=== PATIENT | female | born 1985 | race Caucasian/White ===

== ENCOUNTER 2018-04-14 05:45 | Inpatient (IN) | payer OTHER ==
--- NOTE | 2018-04-14 06:32 | OBADHP ---
Datetime: 04/14/2018 06:29 Admit Comment, IP Provider: with IUP at 38+6 weeks for repeat scheduled CS +FM + CTX - VB - LOF NPO since last night OB: 1 FT CS for NRFHT? in [place] current care with Dr. 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
[2018-04-14] MEDS ORDERED: Lactated Ringer's 1,000 ML IV ONE (06:34)
[2018-04-14] MEDS ORDERED: ceFAZolin 2 GM in Sodium Chloride 0.9% 100 ML IVPB ONE (06:34)
[2018-04-14] MEDS ORDERED: Sodium Citrate/Citric Acid 15 ml Sol PO ONE (06:34)
[2018-04-14 06:44] VITALS: BMI 32.5
[2018-04-14] MEDS ORDERED: cefOXitin IV 2 gm in Saline 2 GM in Sodium Chloride 0.9% 50 ML IV STA (07:10)
[2018-04-14] MEDS ORDERED: Sodium Citrate/Citric Acid 15 ml Sol ONE (07:13)
[2018-04-14] MEDS ORDERED: cefOXitin IV 2 gm in Saline 2 GM/50 ML BAG IVPB ONE (07:14)
--- NOTE | 2018-04-14 07:15 | OBHP ---
Datetime: 04/14/2018 06:29 IP Adm Impression: Term, intrauterine IP Admit Plan: Admit to unit Admit Comment, IP Provider: with IUP at 38+6 week s previous cesearesction chepe c/o pain 12/08 dnie slof, vb, +FM OB: 1 FT CS for NRFHT? 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, unknown pap history, LMP 07/15 Med: hypothyroidism Surg: CS x 1 current meds: levothyroxine 137mcg, vitamin, iron supplement A/P: for in early labor repeat CS vitals stable, afebrile EFM/TOCO NPO/IVF admission labs chart pt seen adn examied SROM during evluatin, eclare r/b/ai of rltcs dw paiettn or/atehsi aware anbiiocs Pelvic Type - PN: Adequate Extremities - PN: Normal Abdomen - PN: Normal Back - PN: Normal Breast - PN: Normal Lungs - PN: Normal Heart - PN: Normal Thyroid - PN: Normal Neurologic - PN: Normal HEENT - PN: Normal General - PN: Normal Presentation-Admit: Vertex FHR - Baseline A Provider: 130 Membranes, Provider: Intact Gestation - Est Wks by US: 38.6 IP Hx Assessment: The History has been Reviewed and is Current EGA AdmitDate IP: 38.6 Vital Signs Provider: Reviewed; Within Normal Limits IP Indication for Induction: Not Applicable IP Chief Complaint: Uterine contractions NICHD Variability Prov Fetus A: Moderate 6-25bpm FHR Category Provider Fetus A: Category I NICHD Decel Fetus A IP Provider: None Dilatation, Provider: 2 Effacement, Provider: 50 Station, Provider: -2 Genitourinary Exam: Normal DTRs - PN: Normal
[2018-04-14] MEDS ORDERED: ePHEDrine 50 mg/ml Inj ONE (07:17)
[2018-04-14] MEDS ORDERED: Morphine 1 mg/ml preservative-free Inj(Duramorph) ONE (07:18)
[2018-04-14 07:26] LABS: BASO % 0.4 % (0.0-2.0); EOS # 0.1 K/uL (0.0-0.7); HEMOGLOBIN 13.1 g/dL (11.0-16.0); LYMPH # 1.1 K/uL (1.0-4.3); LYMPH % 15.4 % (20.0-40.0); MEAN CELL VOLUME 90.3 fL (81.0-99.0); MEAN CORPUSCULAR HEMOGLOBIN 30.9 pg (27.0-31.0); MEAN CORPUSCULAR HGB CONC 34.2 g/dL (33.0-37.0); MONO # 0.5 K/uL (0.0-0.8); MONO % 7.1 % (0.0-10.0); NEUT # 5.7 K/uL (1.8-7.0); NEUT % 76.1 % (50.0-75.0); RBC 4.24 Mil/uL (3.80-5.20); RED CELL DISTRIBUTION WIDTH 13.9 % (11.5-14.5); WHITE BLOOD COUNT 7.4 K/uL (4.8-10.8)
[2018-04-14] MEDS ORDERED: Oxytocin 20 units in LR 2,000 ML IV ONE (07:44)
[2018-04-14] MEDS ORDERED: Lidocaine Hydrochloride 5 ML INJ ONE (07:45)
[2018-04-14] MEDS ORDERED: Bupivacaine HCl 0.25% PF (10 ml) Inj ONE (07:46)
[2018-04-14] MEDS ORDERED: Bupivacaine 0.75% Inj(30mL) ONE (07:47)
[2018-04-14 07:49] LABS: SQUAMOUS EPITHIAL 6 /hpf (0-5); URINE BACTERIA FEW (<OCC); URINE BILIRUBIN NEGATIVE (NEGATIVE); URINE BLOOD 3+ (NEGATIVE); URINE CLARITY Hazy (Clear); URINE COLOR Yellow (YELLOW); URINE GLUCOSE (UA) NORMAL (Normal); URINE LEUKOCYTE ESTERASE 2+ Leu/uL (Negative); URINE PROTEIN NEGATIVE (NEGATIVE); URINE UROBILINOGEN NORMAL mg/dL (0.2-1.0)
[2018-04-14] MEDS ORDERED: Oxytocin 10 Units/ml Inj ONE (08:09)
[2018-04-14 08:16] LABS: BARBITURATES, UR NEGATIVE (NEGATIVE); BENZODIAZEPINES, UR NEGATIVE (NEGATIVE); OPIATES, UR NEGATIVE (NEGATIVE); PHENCYCLIDINE, UR NEGATIVE (NEGATIVE)
[2018-04-14] MEDS ORDERED: Oxycodone/Acetaminophen 5/325 mg Tab PO PRN (08:37)
[2018-04-14] MEDS ORDERED: Oxytocin 30 UNIT 30 UNITS/500 ML BAG IV ONE (08:37)
--- NOTE | 2018-04-14 08:44 | OBDS ---
DELIVERY PERSONNEL Delivery Doctor: Mimi Montero MD Scrub Nurse: Dawna Brown Assembly Cleaner: Solitario Hardwick RN Anesthesiologist: baljinder MATERNAL INFORMATION Delivery Anesthesia: Spinal Medications in Delivery: pitocin 40 Estimated Blood Loss (ml): 800 Placenta Cultured: Yes Maternal Complications: None Provider Comments: live female infat agpar 9, 9 normal appearin guteurs, tubes and ovaries b/l ebl 800ml peidatirc presnte for delivyer no compicaitons LABOR SUMMARY EDC: 04/22/2018 00:00 No. Babies in Womb: 1 Attempted: No Labor Anesthesia: None LABOR INFORMATION Reason for Induction: Not Applicable Onset of Labor: 04/14/2018 01:00 Oxytocin: N/A Group B Beta Strep: Done, Result Unknown Antibiotics # of Doses: 1 Antibiotics Time of Last Dose: 7:18 Steroids Given: None Reason Steroids Not Administered: Not Applicable MEMBRANES Membranes Rupture Method: Artificial Amniotic Fluid Color: Clear Amniotic Fluid Amount: Moderate Amniotic Fluid Odor: Normal STAGES OF LABOR Stage 3 hrs: 0 Stage 3 min: 1 Total Time in Labor hrs: 7 Total Time in Labor min: 4 BABY A INFORMATION Delivery Date/Time: 04/14/2018 08:03 Method of Delivery: Born in Route : No : N/A Forceps: N/A Vacuum Extraction: N/A Shoulder Dystocia : No SHOULDER DYSTOCIA BABY A Delivery Date/Time: 04/14/2018 08:03 PRESENTATION/POSITION BABY A Presentation: Cephalic Cephalic Presentation: Vertex Breech Presentation: N/A PLACENTA INFORMATION BABY A Placenta Delivery Time : 04/14/2018 08:04 Placenta Method of Delivery: Expressed Placenta Status: Delivered SCORES BABY A Heart Rate 1 min: >100 bpm Resp Effort 1 min: Good Cry Reflex Irritability 1 min: Cough or Sneeze or Pulls Away Muscle Tone 1 min: Active Motion Color 1 min: Body Catherine, Extremities Blue Resuscitation Effort 1 min: Tactile Stimulation SCORE 1 MIN: 9 Heart Rate 5 min: >100 bpm Resp Effort 5 min: Good Cry Reflex Irritability 5 min: Cough or Sneeze or Pulls Away Muscle Tone 5 min: Active Motion Color 5 min: Body Catherine, Extremities Blue SCORE 5 MIN: 9 INFANT INFORMATION BABY A Gestational Age at Delivery: 38.6 Gestational Status: Term Infant Outcome : Liveborn Condition : Stable Sex: Female IDENTIFICATION/MEDS BABY A ID Band Number: [id number] ID Band Location: Left Leg; Left Arm Sensor Applied: Yes Sensor Number: [id number] Sensor Location : Cord Clamp WEIGHT/LENGTH BABY A Birthweight (gms): 3140 Infant Weight (lb): 6 Infant Weight (oz): 15 Infant Length Inches: 18.50 Length cms: 47.0 CORD INFORMATION BABY A No. Cord Vessels: 3 Nuchal Cord : N/A Cord Blood Taken: Yes Infant Suction: Mouth; Nose ASSESSMENT BABY A Complications: None Physical Findings at Delivery: Within Normal Limits Infant Respirations: Appears Normal Transitional Care Liaison/ALS Called : No Care By: dr voss Transferred To: Remains with Mother
--- NOTE | 2018-04-14 10:29 | OP ---
PROCEDURE DATE: 04/14/2018 PREOPERATIVE DIAGNOSES: Previous section, chepe in labor with spontaneous rupture of membranes. POSTOPERATIVE DIAGNOSES: Previous section, chepe in labor with spontaneous rupture of membranes. OPERATION PERFORMED: . SURGEON: Mimi Montero MD SUPERVISOR BUFFING AND PASTING: Kentrell Shannon MD OPERATIVE FINDINGS: Live female with cephalic presentation, Apgars 9 and 9. Normal appearing uterus, tubes, and ovaries bilaterally. Manager Assurance is present for delivery. Dr. Kentrell Shannon, certified ophthalmic surgical assistant, was present for the entire case, essentially in gaining entry, retraction, exposure, holding the bladder blade, helping the delivery of the baby, closing of all layers, and was present for the entire case. ESTIMATED BLOOD LOSS: 800 mL. PATHOLOGY: Placenta. COMPLICATIONS: None. ANESTHESIA: Spinal, Dr. Jerome. DESCRIPTION OF PROCEDURE: The patient was transferred to the operating room where she was given spinal anesthesia. Once it was found to be adequate, the patient was placed on the operating table in the dorsal supine position with the legs supported. The patient was then prepped and draped in the usual sterile fashion. A time-out confirmed correct patient and correct procedure. A Pfannenstiel skin incision was made with a scalpel and carried down to the underlying fascia with the Bovie. The fascia was incised in the midline, and the incision was extended laterally with the Bovie. The inferior aspect of the fascial incision was grasped with Allis and Leonardo clamps, and the underlying rectus muscles were dissected off bluntly. Attention was then turned to the superior aspect of the fascial incision, which in a similar fashion was grasped with Allis and Leonardo clamps, and the underlying rectus muscles were dissected off bluntly. The rectus muscles were then bluntly in the midline. The peritoneum was identified and entered in clear space. The incision was extended laterally and superiorly until there was good visualization of the bladder. The lower end of the [place] was then reinserted. The vesicouterine peritoneum was incised with Metzenbaum scissors. The bladder flap was created digitally. The uterine incision was created. The uterine incision was extended laterally with the bandage scissors. The surgeon's hand entered uterine cavity. Infant's head was delivered atraumatically followed by delivery of shoulders, followed by delivered of body. Both oral and nasal passages of the baby were bulb suctioned. The umbilical cord was clamped and cut. Baby was handed off to the awaiting load out supervisor. Cord blood and cord gases were collected and sent x2. The placenta was then delivered manually. The uterus was exteriorized of all clots and debris. The uterine incision was repaired with 0 Vicryl in a running continuous locked fashion. A second layer of the same suture was used to close the uterus in running imbricating manner with good hemostasis at the uterine incision site. The uterus was then returned to the abdomen. Pericolic gutters were cleared of all clots and debris. The peritoneum was reapproximated and closed with 2-0 chromic in running continuous fashion. The rectus was reapproximated and closed with 2-0 chromic in interrupted manner. The fascia was reapproximated with 0 Vicryl in a running continuous fashion. The subcutaneous space was closed with 2-0 plain in interrupted manner, and the skin was reapproximated with 4-0 Monocryl in a running subcuticular fashion. At the end of the procedure, all needle, sponge, and instrument counts were noted to be correct x2. The patient tolerated the procedure well and was transferred to the recovery room in stable condition. Mimi Montero MD
[2018-04-14] MEDS: Simethicone 80 mg Chewtab PO SCH ×4 (12:04→22:02)
[2018-04-14] MEDS: Prenatal Multivit/Folic Acid/Iron Tab PO SCH (18:44)
[2018-04-15] MEDS: Oxycodone/Acetaminophen 5/325 mg Tab PO PRN ×2 (05:39→15:03)
[2018-04-15 08:24] LABS: HEMOGLOBIN 11.6 g/dL (11.0-16.0); MEAN CELL VOLUME 91.4 fL (81.0-99.0); MEAN CORPUSCULAR HEMOGLOBIN 30.9 pg (27.0-31.0); MEAN CORPUSCULAR HGB CONC 33.8 g/dL (33.0-37.0); MEAN PLATELET VOLUME 8.7 fL (7.2-11.7); RBC 3.74 Mil/uL (3.80-5.20); RED CELL DISTRIBUTION WIDTH 13.8 % (11.5-14.5); WHITE BLOOD COUNT 10.3 K/uL (4.8-10.8)
[2018-04-15] MEDS ORDERED: Bisacodyl 5mg EC Tab PO ONE (08:38)
[2018-04-15] MEDS: Simethicone 80 mg Chewtab PO SCH ×4 (09:00→22:18)
[2018-04-15] MEDS: Prenatal Multivit/Folic Acid/Iron Tab PO SCH (09:01)
--- NOTE | 2018-04-15 09:18 | OBPPN ---
Datetime: 04/15/2018 09:16 PP Pain Prov: Within normal limits PP Nausea Prov: Denies PP Flatus Prov: Yes PP Breasts Prov: Normal PP Heart Prov: Normal PP Lungs Prov: Normal PP Abdomen/Uterus Prov: Normal PP Lochia Prov: Normal PP Vulva/Perineum Prov: Normal PP CVA Tenderness Prov: Normal PP Extremities Prov: Normal PP C/S Incision Prov: Normal PP Progress Prov: Normal PP Impression Prov: Normal progression PP Plan Prov: Continue present management PP Progress Note Prov: pt seen adn examiend perilana pian controlled iw htmeds. pt ambuaitn,v not yet voiidng, no passign flatu, toelrateing diet with out nause, vmitig, fver, chills vss pe see aobve a/p s/p rltcs pod #1 pain carmen wallace salgado regualr diet encourage bresat feedgn and maeubitn am labs Vital Signs Provider PP: Reviewed; Within Normal Limits
[2018-04-16] MEDS: Oxycodone/Acetaminophen 5/325 mg Tab PO PRN ×2 (03:28→16:56)
[2018-04-16] MEDS: Simethicone 80 mg Chewtab PO SCH ×3 (10:35→16:59)
[2018-04-16] MEDS: Prenatal Multivit/Folic Acid/Iron Tab PO SCH (10:35)
[2018-04-16] MEDS ORDERED: Influenza Vaccine 60 MCG/0.5 ML SYR (3 yr & up) IM ONE (15:53)
[2018-04-16 23:53] VITALS: BP 120/74; PULSE 87; RESP 18; TEMP 98.2; O2SAT 97
== END 2018-04-16 18:50 | disposition home or self-care (01) | DRG 788 ==
LOC: C.EROB 05:45 → C.4D 06:26 → C.4M 10:48
PROVIDERS: ADMIT Obstetrics & Gynecology; ATTEND Obstetrics & Gynecology
PROC: 10D00Z1 Extraction of Products of Conception, Low, Open Approach (ICD-10-PCS; principal; 2018-04-14)
DX: O99.284 Endocrine, nutritional and metabolic diseases complicating childbirth (principal); E03.9 Hypothyroidism, unspecified; O34.219 Maternal care for unspecified type scar from previous cesarean delivery; Z3A.38 38 weeks gestation of pregnancy; Z37.0 Single live birth